=== PATIENT | female | born 1955 | race Caucasian/White ===

== ENCOUNTER → 2017-07-18 | Outpatient (CLI) | payer BC ==
--- NOTE | 2017-07-18 12:10 | PCVCIMAG ---
APPROVED REPORT Exam: Stress Echocardiogram Indication: Pre-Operative CV evaluation, Hyperlipidemia, fam hx cad Patient Location: Echo lab Stress Nurse: Suze Mcgill RN Status: routine Ht: 4 ft 10 in HR: 73 bpm Rhythm: NSR Medical History Medical History: Hyperlipidemia, pre op cl Cardiac Risk Factors: Hyperlipidemia, FHX of CAD Pretest Chest Pain Characteristics: No chest pain Procedure The patient underwent an Exercise Stress Test using the Nir Protocol. Blood pressure, heart rate, and EKG were monitored. An Echocardiogram was performed by converting technician in four stages in quad fashion. At peak stress, four selected images were obtained and placed side by side with resting images for comparison. Stress Test Details Stress Test: Exercise stress testing was performed using a Nir protocol. HR Resting HR: 73 bpmMax Heart Rate (APMHR): 159 bpm Max HR Achieved: 179 bpmTarget HR (85% APMHR): 135 bpm % of APMHR: 112 Recovery HR: 85 bpm HR response to stress: Normal HR response to stress BP Resting BP: 136/80 mmHg Max BP: 150/80 mmHg Recovery BP: 130/80 mmHg ECG Resting ECG: Sinus Rhythm Stress ECG: Sinus Rhythm ST Change: Non-ischemic Arrhythmia: Rare PVC Recovery ECG: Sinus Rhythm Recovery ST Change: Non-ischemic Recovery Arrhythmia: None Clinical Reason for Termination: Maximal effort Stress Symptoms: none Exercise duration: 6 min 34 sec Highest Stage Achieved: Stage 3: 3.4 mph at 14% grade. Exercise capacity: 8.6 METs Angina Score: None No complications. Stress ECG Conclusion The patient exercised according to the BRUCEprotocol for 6:34 min., achieving a work level of Max. METS:8.6 . The resting heart rate of 73 bpm yumiko to a maximal heart rate of 181 bpm. This value represents 113% of the maximal, age-predicted heart rate. The resting blood pressure of 136/80 mmHg, yumiko to a maximum blood pressure of 150/80 mmHg. The exercise test was stopped due to fatigue. Pre-Stress Echo The resting Echocardiogram showed normal left ventricular contractility with an estimated Ejection Fraction of about 55-60%. Normal wall motion in all segments on baseline images. Post-Stress Echo The stress Echocardiogram showed normal left ventricular contractility with an estimated Ejection Fraction of about 65-70%. Normal augmentation of wall motion in all segments on post stress images. Clinical No clinical or ECG evidence for ischemia. Conclusion Clinical Response: Non-ischemic Exercise Capacity: Below Average Stress ECG Response: Non-ischemic Stress Echo Images: Non-ischemic Normal stress echocardiogram with maximal exercise stress. No clinical, EKG or echocardiographic evidence for ischemia. No echocardiographic evidence for exercise induced ischemia. <Conclusion> Normal stress echocardiogram with maximal exercise stress. No clinical, EKG or echocardiographic evidence for ischemia. No echocardiographic evidence for exercise induced ischemia.
== END | disposition home or self-care (01) ==
LOC: PCVCIMAG 10:35
PROVIDERS: ATTEND Internal Medicine Cardiovascular Disease
DX: Z01.810 Encounter for preprocedural cardiovascular examination (principal); E78.5 Hyperlipidemia, unspecified; K21.9 Gastro-esophageal reflux disease without esophagitis; I49.3 Ventricular premature depolarization; Z82.49 Family history of ischemic heart disease and other diseases of the circulatory system
CPT/HCPCS: 93325; 93351